=== PATIENT | female | born 1935 | race Caucasian/White ===

== ENCOUNTER 2018-04-12 05:52 | Emergency (ER) | payer OTHER, MEDICARE ==
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
[2018-04-12 06:32] VITALS: BP 172/77
== END 2018-04-12 07:56 ==
LOC: ERH 05:52
DX: Z04.3 Encounter for examination and observation following other accident (principal); W19.XXXA Unspecified fall, initial encounter; Y92.129 Unspecified place in nursing home as the place of occurrence of the external cause; Y93.9 Activity, unspecified

== ENCOUNTER 2018-06-08 12:21 | Inpatient (IN) | payer OTHER ==
[~2018-06-08] VITALS: Ht 157.5 cm; Wt 53.1 kg
[2018-06-08 12:54] LABS: ABSOLUTE BASOPHIL COUNT 0 /CUMM (0.0-0.2); ABSOLUTE EOSINOPHIL COUNT 0 /CUMM (0.0-0.7); ABSOLUTE GRANULOCYTE CT 13.5 /CUMM (1.4-6.5); ABSOLUTE LYMPH COUNT 0.9 /CUMM (1.2-3.4); ABSOLUTE MONOCYTE COUNT 1.1 /CUMM (0.10-0.60); BASOPHIL % 0.1 % (0.0-2.0); EOSINOPHIL % 0 % (0-5); GRANULOCYTE % 87.3 % (42.2-75.2); HEMATOCRIT 34.7 % (37-47); MEAN CORPUSCULAR HGB 31.5 PG (27.0-31.0); MEAN CORPUSCULAR HGB CONC 33.8 G/DL (33.0-37.0); MEAN CORPUSCULAR VOLUME 93.1 FL (81.0-99.0); MEAN PLATELET VOLUME 9.3 FL (7.4-10.4); PLATELET COUNT 218 /CUMM (130-400); RBC DISTRIBUTION WIDTH 13.2 % (11.5-14.5); RED BLOOD CELL CT 3.73 /CUMM (4.20-5.40)
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
[2018-06-08 13:04] LABS: WHITE BLOOD CELL COUNT 15.5 /CUMM (4.8-10.8)
[2018-06-08] MEDS ORDERED: TRAVATAN Z5 ML OPH (13:29)
[2018-06-08] MEDS ORDERED: LUMIGAN2.5 ML OPH (13:30)
[2018-06-08] MEDS ORDERED: LISINOPRIL10 M1 PO (13:30)
[2018-06-08] MEDS ORDERED: SERTRALINE HCL25 MG PO (13:31)
[2018-06-08] MEDS ORDERED: TRAZODONE HCL50 M1 PO ×2 (13:32→13:33)
[2018-06-08] MEDS ORDERED: BETIMOL5 ML OPH (13:32)
--- NOTE | 2018-06-08 14:05 | CT SCAN REPORT ---
EXAMINATION: CT HEAD WITHOUT CONTRAST CLINICAL INFORMATION: Altered mental status status-post fall. COMPARISON: CT head dated 06/04/2018. TECHNIQUE: Contiguous axial imaging was performed from the skull base to vertex without intravenous administration of contrast. DLP: 603.30 mGy-cm FINDINGS: There is no interim acute intracranial hemorrhage or territorial infarction. No abnormal mass effect or midline shift is seen. Elliott to white matter differentiation is well preserved. No extra-axial fluid collections are identified. The ventricles are normal in size. There is age-appropriate generalized sulcal widening. There is marked patchy low attenuation in the periventricular white matter spaces. Previously described right thalamic lacunar infarction is faintly visualized. There are atherosclerotic calcifications of the skull base vasculature. The osseous structures and soft tissues are normal. The mastoid air cells and visualized portions of the paranasal sinuses are well aerated. IMPRESSION: 1. No acute intracranial pathology. There is no significant interim change. 2. There is marked patchy low attenuation change in the paravertebral white matter spaces, commonly associated with chronic microangiopathy. 3. A previously described right thalamic lacunar infarction is faintly visualized. Please see recommendation on the report for the CT brain dated 06/04/2018.
--- NOTE | 2018-06-08 14:13 | RADIOLOGY REPORT ---
EXAMINATION: XR PORTABLE CHEST CLINICAL INFORMATION: Rule out pneumonia/CHF. Fever with altered mental status. COMPARISON: Chest x-ray dated 06/04/2018. TECHNIQUE: Portable frontal view of the chest was obtained. FINDINGS: The cardiomediastinal silhouette is unchanged with marked tortuosity and ectasia of the aorta are seen. Heart size is borderline enlarged. Lungs bilaterally are symmetrically expanded and demonstrate slight coarsening of the bronchovascular lung markings and slight thickening of the central airways, suggesting obstructive lung disease. No focal consolidation, effusion or pneumothorax seen. Convex left thoracolumbar scoliosis and diffuse osteopenia again seen. IMPRESSION: 1. Tortuous and ectatic aorta and borderline enlarged cardiac silhouette. 2. Lung findings suggestive of obstructive lung disease. No focal superimposed acute process.
--- NOTE | 2018-06-08 14:48 | History & Physical ---
BryantKirsten 06/08/18 1445: General Information and HPI MD Statement: I have seen and personally examined ROLANDA MADRID and documented this H&P. The patient is a 83 year old F who presented with a patient stated chief complaint of [AMS, UTI]. Source of Information: old records, EMS Exam Limitations: confusion, dementia History of Present Illness: Ms. Chen is a 83yo F w/ PMH of AZD, HTN, Galucoma, OA, presented to ER BIBA from assist living a/P fall, and per EMS, patient was found laying on the floor in an apartment, was unwitnessed fall. Patient had baseline confusion but denied any injuries or no obvious signs of injury to her neck or back, patient remained alert and awake but only oriented to self, not to place/time/setting/ president. Patient was recently seen in ER on 06/04 with AMS however was sent home monitoring without admission. During our clinical interaction, patient appeared to be alert awake and conversational, however do not know where she is currently, or what year this and answered only 1900, and did not know who is the [place] president currently. Patient complaining of chills and cold and require more blanket, however denied any other discomfort and followed all my commands to physical examination. Patient also denied that she fell today and stated that she lives by herself, and mumbled that somebody was taking care of her. -Baselines: ambulate with walker Allergies/Medications Allergies: Coded Allergies: No Known Allergies (10/12/17) Home Med list Bimatoprost (Lumigan) 0.01 % DROPS 1 GTT OPH QPM BOTH EYES (Reported) Lisinopril 10 MG TABLET 1 TAB PO DAILY BP (Reported) Sertraline HCl 25 MG TABLET 1 TAB PO 0800 MENTAL HEALTH (Reported) Timolol (Betimol) 0.25 % DROPS 1 DROP OPH BID BOTH EYES (Reported) Travoprost (Travatan Z) 0.004 % DROPS 1 GTT OPH DAILY EYES (Reported) Trazodone HCl 50 MG TABLET 0.5 TAB PO PRN UNKNOWN (Reported) Past History Travel History Traveled to [place] past 21 day No Medical History Neurological: Alzheimer's disease EENT: glaucoma Cardiovascular: hypertension Respiratory: NONE Gastrointestinal: NONE Hepatic: NONE Renal: NONE Musculoskeletal: osteoarthritis, CARPAL TUNNEL Psychiatric: NONE Endocrine: NONE Blood Disorders: NONE Cancer(s): NONE 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 Exam & Diagnostic Data Last 24 Hrs of Vital Signs/I&O Vital Signs Date Time Temp Pulse Resp B/P B/P Pulse O2 O2 Flow FiO2 Mean Ox Delivery Rate 06/08 1234 98.9 85 16 164/80 100 Room Air Intake & Output 06/08 1600 06/08 0800 06/08 0000 Intake Total Output Total Balance Patient 49.895 kg Weight Weight Estimated Measurement Method Physical Exam General Appearance Alert, Cooperative, chills. oriented to self only Skin No Rashes, No Breakdown, No Significant Lesion Skin Temp/Moisture Exam: Warm/Dry Sepsis Skin Exam (color): Normal for Ethnicity HEENT Atraumatic, PERRLA, EOMI Neck Supple, No JVD Cardiovascular mild tachycardia Lungs Clear to Auscultation, Normal Air Movement Abdomen Normal Bowel Sounds, Soft, No Tenderness Neurological Strength at 5/5 X4 Ext, Sensation Intact Extremities No Edema, Normal Pulses, No Tenderness/Swelling Last 24 Hrs of Labs/Jonathan: Laboratory Tests 06/08/18 1430: Methadone Screen Pending, Barbiturate Screen Pending, Ur Phencyclidine Scrn Pending, Amphetamines Screen Pending, U Benzodiazepines Scrn Pending, Urine Cocaine Screen Pending, Urine Cannabis Screen Pending, Urine Color YEL, Urine Clarity CLDY H, Urine pH 6.5, Ur Specific [place] 1.020, Urine Protein 30 H, Urine Ketones NEG, Urine Nitrite POS H, Urine Bilirubin NEG, Urine Urobilinogen 1.0, Ur Leukocyte Esterase LARGE H, Ur Microscopic SEDIMENT EXAMINED, Urine RBC RARE, Urine WBC > 75 H, Ur Epithelial Cells FEW, Urine Bacteria MANY H, Urine Hemoglobin SMALL H, Urine Glucose NEG 06/08/18 1241: Anion Gap 9, Estimated GFR > 60, BUN/Creatinine Ratio 30.0 H, Glucose 130 H, Calcium 9.7, Total Bilirubin 0.8, AST 20, ALT 25, Alkaline Phosphatase 80, Troponin I 0.02, Total Protein 6.3, Albumin 3.8, Globulin 2.5, Albumin/Globulin Ratio 1.5, CBC w Diff MAN DIFF ORDERED, RBC 3.73 L, MCV 93.1, MCH 31.5 H, MCHC 33.8, RDW 13.2, MPV 9.3, Gran % 87.3 H, Lymphocytes % 5.7 L, Monocytes % 6.9, Eosinophils % 0, Basophils % 0.1, Absolute Granulocytes 13.5 H, Absolute Lymphocytes 0.9 L, Absolute Monocytes 1.1 H, Absolute Eosinophils 0, Absolute Basophils 0, Platelet Estimate VERIFIED BY SMEAR, Basophilic Stippling SLIGHT Microbiology 06/08 1430 URINE ROUT: Urine Culture - RECD Assessment/Plan Assessment: On admission, Vitals: stable afebrile however spiked Tmax 100.4 during GM admission, BP 164/80 , RA satting 100% -CBC: Leukocytosis 15.5, H/H 11.8/34.7 -BMP: unremarkbale -PT/INR: none -UA/Microbiology: Positive for LE/NItrites/WBC/Bacteria. -CXR: 1. Tortuous and ectatic aorta and borderline enlarged cardiac silhouette. 2. Lung findings suggestive of obstructive lung disease. No focal superimposed acute process -Head CT: 1. No acute intracranial pathology. There is no significant interim change. 2. There is marked patchy low attenuation change in the paravertebral white matter spaces, commonly associated with chronic microangiopathy. 3. A previously described right thalamic lacunar infarction is faintly visualized. Please see recommendation on the report for the CT brain dated 06/04/2018. -EKG: NSR w/o significant ST-T abnormalities. -Last Echo: none in [facility] -Interventions in ER: IVF x 1, ceftriaxone x 1 Problem list/Assessment/Hospital Course: #UTI w/ Leukocytosis #Dehydration #AMS w/ possible Toxic encephalopathy 2/2 UTI pending rule out. #Unwitnessed Fall #PMH of AZD, HTN, Galucoma, OA - Admit to General Medicine - Vitals per protocol, monitor I&O per protocol. - PT/OT as needed - Continuous IVF x 1 bag @75cc. Would encourage food intake however may be limited due to patient's confusion - Obtain psych consult. - Start ABx Ceftriaxone 1000mg IV q24. No previous microbiology on file, thus would cover common UTI bugs - Pending blood culture/Urine culture/tox - Obtain history from caregiver if any - Continue home meds upon confirmation, will hold trazdone due to AMS - Pain per pathway. DVT prophylaxis Pharm PPX + ALPS Regular Diet IV Access: Peripheral IV Full Code As Ranked By This Provider Problem List: 1. UTI (urinary tract infection) Qualifiers Urinary tract infection type: site unspecified Hematuria presence: without hematuria Qualified Code: N39.0 - Urinary tract infection, site not specified Core Measures/Misc (08/12) Acute Coronary Syndrome ACS Diagnosis: No Congestive Heart Failure Congestive Heart Failure Diagnosis No Cerebrovascular Accident CVA/TIA Diagnosis: No VTE (View Protocol) VTE Risk Factors Age>40 No Mechanical VTE Prophylaxis d/t N/A MechProphylax Ordered No VTE Pharm Prophylaxis d/t NA PharmProphylax ordered Sepsis (View protocol) Sepsis Present: No If YES complete Sepsis Event Note If YES complete Sepsis Event Note Srikanth Bhandari MD 06/08/18 4309: Core Measures/Misc (08/12) Sepsis (View protocol) If YES complete Sepsis Event Note If YES complete Sepsis Event Note Attending MD Review Statement Attending Statement Attending MD Statement: examined this patient, discuss w/resident/PA/INVESTIGATIVE ANALYST, agreed w/resident/PA/INVESTIGATIVE ANALYST, reviewed EMR data (avail), reviewed images, amended to note Attending Assessment/Plan: The patient is an 83 yo female with h/o dementia, HTN, OA, who was found on the floor of her apartment (assisted living) after an unwitnessed fall. She was awake, however altered mental status. She had also been seen in the ED here on for altered mental status, however no etiology found and she was sent home. She did c/o feeling chilled and cold. Denied any pain. Physical Exam: VS: T 98.9, P 85, R 16, BP 164/80, PO 100% RA HEENT: eyes- PERRLA travis- dry mucosa Neck: no JVD/bruits Chest: clear Cor: Reg rhythm, sl tachy, nl S1, S2 w/o murm Abd: BS+, soft, NT, - masses, - CVAT Ext: no edema, pulses 1+ Neuro: alert, disoriented to time/place, knows her name, non-focal exam (gait not tested) Labs/Tests -as above Impression/Plan: #UTI- With leukocytosis, left shift, low grade fever. Does not meet sepsis criteria. Plan: Ortega-culture. Begin IV ceftriaxone. Follow symptoms. Will need PT evaluation when improving. IV hydration. #Altered Mental Status- c/w Toxic Metabolic Encephalopathy- due to UTI. Plan: Follow mental status with treatment. #H/O Depression/Dementia- on Sertraline and Trazodone. Plan: Will hold Trazodone at present as mental status is altered. #HTN- on Lisinopril. Plan: Will continue Lisinopril.
[2018-06-08 16:30] VITALS: BP 138/60
[2018-06-08 22:09] VITALS: BP 144/80
--- NOTE | 2018-06-08 23:48 | Admission Certification ---
Admission Certification Certification Statement - As attending physician, I certify that at the time of - admission, based on clinical presentation, severity of - symptoms, need for further diagnostic testing and - therapeutic interventions, and risk of adverse outcomes - without in-hospital treatment, in my clinical assessment, - this patient requires an acute hospital stay for a minimum - of two nights or longer. I have also considered psychsocial - factors such as support system, advanced age, financial - issues, cognitive issues, and failed out-patient treatments, - past re-admission history, safety of patient, and lack of - compliance as applicable. Specific rationale supporting this admission is: The patient presents with UTI and altered mental status c/w toxic metabolic encephalopathy. Needs admission for cultures, IV antibiotics (Ceftriaxone), PT, IV hydration.
[2018-06-09] VITALS (7 sets, daily range): BP systolic 110–200; BP diastolic 50–100
[2018-06-09 07:58] LABS: ABSOLUTE BASOPHIL COUNT 0 /CUMM (0.0-0.2); ABSOLUTE EOSINOPHIL COUNT 0.1 /CUMM (0.0-0.7); ABSOLUTE GRANULOCYTE CT 10.1 /CUMM (1.4-6.5); ABSOLUTE LYMPH COUNT 1.3 /CUMM (1.2-3.4); ABSOLUTE MONOCYTE COUNT 0.8 /CUMM (0.10-0.60); BASOPHIL % 0 % (0.0-2.0); EOSINOPHIL % 0.4 % (0-5); GRANULOCYTE % 82.2 % (42.2-75.2); HEMATOCRIT 31.5 % (37-47); MEAN CORPUSCULAR HGB 32.2 PG (27.0-31.0); MEAN CORPUSCULAR HGB CONC 34.2 G/DL (33.0-37.0); MEAN CORPUSCULAR VOLUME 94.2 FL (81.0-99.0); MEAN PLATELET VOLUME 9.7 FL (7.4-10.4); PLATELET COUNT 175 /CUMM (130-400); RBC DISTRIBUTION WIDTH 13.1 % (11.5-14.5); RED BLOOD CELL CT 3.35 /CUMM (4.20-5.40); WHITE BLOOD CELL COUNT 12.2 /CUMM (4.8-10.8)
--- NOTE | 2018-06-09 08:28 | PN- Housestaff ---
See Addendum Subjective Follow-up For: UTI Subjective: Overnight, patient blood pressure was in the 200s, was a symptomatically patient 's lisinopril was given earlier and she was given IV Tylenol for pain. Patient' s blood pressure normalized. Had no hypertensive events today. Patient seen and examined at bedside today. Patient more alert and oriented, 2, not oriented to time. When asked about fall, patient adamantly denied she felt she stated "I slid out of the bed that was not falling". Patient still continues to converse in yi every once in a while. Patient states that she feels an urge to urinate, however she does not urinate. Patient denies burning with urination. Patient also denies frequency. Patient states the symptoms are resolving somewhat. Patient denies fever/chills/night sweats/chest pain/ abdominal pain/lower extremity edema. Review of Systems Constitutional: Reports: see HPI. Objective Last 24 Hrs of Vital Signs/I&O Vital Signs Date Time Temp Pulse Resp B/P B/P Pulse O2 O2 Flow FiO2 Mean Ox Delivery Rate 06/09 1509 98.6 74 18 178/98 95 Room Air 06/09 0738 73 162/86 97 Room Air 06/09 0622 97.7 68 16 110/50 94 Room Air 06/09 0444 97 200/100 06/09 0420 98.2 97 18 200/100 95 Room Air 06/08 2209 98.7 81 17 144/80 96 Room Air 06/08 1931 85 06/08 1630 99.4 104 18 138/60 97 Room Air Intake & Output 06/09 1600 06/09 0800 06/09 0000 Intake Total 360 690 Output Total Balance 360 690 Intake, IV 120 450 Intake, Oral 240 240 Number 0 0 Bowel Movements Patient 117 lb Weight Weight Bed scale Measurement Method Physical Exam General Appearance: Alert, Cooperative, No Acute Distress Cardiovascular: Regular Rate, Normal S1, Normal S2 Lungs: Clear to Auscultation, Normal Air Movement Abdomen: Soft, No Tenderness Neurological: Sensation Intact Extremities: No Edema Current Medications: Current Medications Sig/Ratna Start time Last Medication Dose Route Stop Time Status Admin Acetaminophen 1,000 MG .STK-MED ONE 06/09 0440 DC IV 06/09 0441 Acetaminophen 650 MG Q6P PRN 06/08 1530 AC PO Acetaminophen 1,000 MG Q6P PRN 06/08 1530 AC 06/09 IV 0444 Ceftriaxone Sodium 1,000 MG 1500 06/09 1500 AC IV Heparin Sodium 5,000 UNIT Q8 06/08 2200 AC 06/09 (Porcine) SC 1346 Latanoprost 1 GTT AT BEDTIME 06/08 2100 AC 06/08 OPH 2158 Lisinopril 10 MG DAILY 06/09 0900 AC 06/09 PO 0444 Risperidone 0.25 MG QPM 06/09 2100 UNVr PO Sertraline HCl 25 MG 0800 06/09 0800 AC 06/09 PO 0756 Sodium Chloride 1,000 ML ONCE ONE 06/08 1445 DC 06/08 IV 06/08 2124 1509 Timolol Maleate 1 GTT BID 06/08 2100 AC 06/09 OPH 0756 Last 24 Hrs of Lab/Jonathan Results Last 24 Hrs of Labs/Mics: Laboratory Tests 06/09/18 0705: Anion Gap 9, Estimated GFR > 60, BUN/Creatinine Ratio 21.7, CBC w Diff NO MAN DIFF REQ, RBC 3.35 L, MCV 94.2, MCH 32.2 H, MCHC 34.2, RDW 13.1, MPV 9.7, Gran % 82.2 H, Lymphocytes % 10.6 L, Monocytes % 6.8, Eosinophils % 0.4, Basophils % 0, Absolute Granulocytes 10.1 H, Absolute Lymphocytes 1.3, Absolute Monocytes 0.8 H, Absolute Eosinophils 0.1, Absolute Basophils 0 06/08/18 1614: Lactic Acid 1.0 Microbiology 06/08 161 BLOOD: Blood Culture - RES Assessment/Plan Assessment: Ms. Chen is a 83yo F w/ PMH of AZD, HTN, Galucoma, OA, presented to ER BIBA from assist living a/P fall, and per EMS, patient was found laying on the floor in an apartment, was unwitnessed fall #UTI #Confusion tomorrow not good. Could be contributory to confusion. DVT prophylaxis IV access Tolerating regular diet Disposition Clarify with caregiver whether she is full code or DNR/DNI Problem List: 1. UTI (urinary tract infection) 2. Confusion and disorientation Pain Ratin Pain Location: suprapubic Pain Goal: Pain 4 or less Pain Plan: pain pathway Tomorrow's Labs & Rationales: cbc follow white count
--- NOTE | 2018-06-09 12:06 | Cons- Psychiatry ---
Psychiatric Consult Date of Consult: 06/09/18 Reason for Consult: "altered mental status" History of Present Illness: Pt BIBA s/p fall found to have UTI and some confusion. Per hx, also hx of cognitive impairment and CVA. Pt reports that here in the hospital, which she was oriented to, because of "problems when I pee peed." She reports this has improved. She was oriented to self, location and situation. Not oriented to month (March) or year (2016). She denies depression or anxiety. Denies SI or HI, "I'm trying to make it to 100, but its going to be hard, but I'm going to try!" Allergies: Coded Allergies: No Known Allergies (10/12/17) Current Medications: Current Medications Sig/Ratna Start time Last Medication Dose Route Stop Time Status Admin Acetaminophen 650 MG Q6P PRN 06/08 1530 AC PO Acetaminophen 1,000 MG Q6P PRN 06/08 1530 AC 06/09 IV 0444 Ceftriaxone Sodium 1,000 MG 1500 06/09 1500 AC IV Ceftriaxone Sodium 0 .STK-MED ONE 06/08 1455 DC .ROUTE Ceftriaxone Sodium 1,000 MG ONCE ONE 06/08 1445 DC 06/08 IV 06/08 1446 1509 Heparin Sodium 5,000 UNIT Q8 06/08 2200 AC 06/09 (Porcine) SC 0640 Latanoprost 1 GTT AT BEDTIME 06/08 2100 AC 06/08 OPH 2158 Lisinopril 10 MG DAILY 06/09 0900 AC 06/09 PO 0444 Sertraline HCl 25 MG 0800 06/09 0800 AC 06/09 PO 0756 Sodium Chloride 1,000 ML ONCE ONE 06/08 1445 DC 06/08 IV 06/08 2124 1509 Timolol Maleate 1 GTT BID 06/08 2100 AC 06/09 OPH 0756 Past History Past Medical History Neurological: Alzheimer's disease EENT: glaucoma Cardiovascular: hypertension Respiratory: NONE Gastrointestinal: NONE Hepatic: NONE Renal: NONE Musculoskeletal: osteoarthritis, CARPAL TUNNEL Psychiatric: NONE Endocrine: NONE Blood Disorders: NONE Cancer(s): NONE MICROARRAY SPECIALIST/Reproductive: NONE Past Surgical History Surgical History: unobtainable, 1 Psychiatric Treatment History Psych Treatment Psychiatric Treatment No Diagnosis: ?MDD Risk Factors: age (under 24/over 65), chronic/serious med cond. Substance Use/Abuse History Drug Use/Abuse Substances Used/Abused No Substance Abuse Treatment Substance Abuse Treatment Past Substance Abuse [place] No Assessment/Plan Mental Status Orientation: Current situation, Person, Place Affect: WNL Speech: Soft Neuro-vegetative: Appetite Decreased, Concentration Poor Mental Status Exam: MSE Appearance: older as stated age Speech : nl rate, rhythm, volume and prosody Behavior: cooperative Motor: slight psychomotor agtiation Mood : "much better now" Affect : euthymic, non-labile, appropriate, full range Thought process: linear and goal directed Thought content : no delusions or paranoia Perceptions: denied AVHs, denied SI or HI Insight: poor Judgment: poor Lab Results: Laboratory Tests 06/09 06/08 0705 1614 Chemistry Sodium (137 - 145 mmol/L) 139 Potassium (3.5 - 5.1 mmol/L) 3.7 Chloride (98 - 107 mmol/L) 103 Carbon Dioxide (22 - 30 mmol/L) 26 Anion Gap (5 - 16) 9 BUN (7 - 17 mg/dL) 13 Creatinine (0.5 - 1.0 mg/dL) 0.6 Estimated GFR (>60 ml/min) > 60 BUN/Creatinine Ratio (7 - 25 %) 21.7 Lactic Acid (0.7 - 2.1 mmol/L) 1.0 Hematology CBC w Diff NO MAN DIFF REQ WBC (4.8 - 10.8 /CUMM) 12.2 H RBC (4.20 - 5.40 /CUMM) 3.35 L Hgb (12.0 - 16.0 G/DL) 10.8 L Hct (37 - 47 %) 31.5 L MCV (81.0 - 99.0 FL) 94.2 MCH (27.0 - 31.0 PG) 32.2 H MCHC (33.0 - 37.0 G/DL) 34.2 RDW (11.5 - 14.5 %) 13.1 Plt Count (130 - 400 /CUMM) 175 MPV (7.4 - 10.4 FL) 9.7 Gran % (42.2 - 75.2 %) 82.2 H Lymphocytes % (20.5 - 51.1 %) 10.6 L Monocytes % (1.7 - 9.3 %) 6.8 Eosinophils % (0 - 5 %) 0.4 Basophils % (0.0 - 2.0 %) 0 Absolute Granulocytes (1.4 - 6.5 /CUMM) 10.1 H Absolute Lymphocytes (1.2 - 3.4 /CUMM) 1.3 Absolute Monocytes (0.10 - 0.60 /CUMM) 0.8 H Absolute Eosinophils (0.0 - 0.7 /CUMM) 0.1 Absolute Basophils (0.0 - 0.2 /CUMM) 0 06/08 1430 Toxicology Urine Opiates Screen (>2000 NG/ML) < 100 Methadone Screen (>300 NG/ML) < 40 Barbiturate Screen (>200 NG/ML) < 60 Ur Phencyclidine Scrn (>25 NG/ML) < 6.00 Amphetamines Screen (>1000 NG/ML) < 100 U Benzodiazepines Scrn (>200 NG/ML) 102 Urine Cocaine Screen (>300 NG/ML) < 50 Urine Cannabis Screen (>50 NG/ML) < 5.00 Urines Urine Color (YEL,AMB,STR) YEL Urine Clarity (CLEAR) CLDY H Urine pH (5.0 - 8.0) 6.5 Ur Specific [place] (1.001 - 1.035) 1.020 Urine Protein (NEG,<30 MG/DL) 30 H Urine Ketones (NEG) NEG Urine Nitrite (NEG) POS H Urine Bilirubin (NEG) NEG Urine Urobilinogen (0.1 - 1.0 EU/dl) 1.0 Ur Leukocyte Esterase (NEG) LARGE H Ur Microscopic SEDIMENT EXAMINED Urine RBC (0 - 5 /HPF) RARE Urine WBC (0 - 2 /HPF) > 75 H Ur Epithelial Cells (NONE,FEW) FEW Urine Bacteria (NEG/NONE) MANY H Urine Hemoglobin (NEG) SMALL H Urine Glucose (N MG/DL) NEG 06/08 1241 Chemistry Sodium (137 - 145 mmol/L) 139 Potassium (3.5 - 5.1 mmol/L) 4.1 Chloride (98 - 107 mmol/L) 100 Carbon Dioxide (22 - 30 mmol/L) 30 Anion Gap (5 - 16) 9 BUN (7 - 17 mg/dL) 18 H Creatinine (0.5 - 1.0 mg/dL) 0.6 Estimated GFR (>60 ml/min) > 60 BUN/Creatinine Ratio (7 - 25 %) 30.0 H Glucose (65 - 99 mg/dL) 130 H Calcium (8.4 - 10.2 mg/dL) 9.7 Total Bilirubin (0.2 - 1.3 mg/dL) 0.8 AST (14 - 36 U/L) 20 ALT (9 - 52 U/L) 25 Alkaline Phosphatase (<127 U/L) 80 Troponin I (< 0.11 ng/ml) 0.02 Total Protein (6.3 - 8.2 g/dL) 6.3 Albumin (3.5 - 5.0 g/dL) 3.8 Globulin (1.9 - 4.2 gm/dL) 2.5 Albumin/Globulin Ratio (1.1 - 2.2 %) 1.5 Hematology CBC w Diff MAN DIFF ORDERED WBC (4.8 - 10.8 /CUMM) 15.5 H RBC (4.20 - 5.40 /CUMM) 3.73 L Hgb (12.0 - 16.0 G/DL) 11.8 L Hct (37 - 47 %) 34.7 L MCV (81.0 - 99.0 FL) 93.1 MCH (27.0 - 31.0 PG) 31.5 H MCHC (33.0 - 37.0 G/DL) 33.8 RDW (11.5 - 14.5 %) 13.2 Plt Count (130 - 400 /CUMM) 218 MPV (7.4 - 10.4 FL) 9.3 Gran % (42.2 - 75.2 %) 87.3 H Lymphocytes % (20.5 - 51.1 %) 5.7 L Monocytes % (1.7 - 9.3 %) 6.9 Eosinophils % (0 - 5 %) 0 Basophils % (0.0 - 2.0 %) 0.1 Absolute Granulocytes (1.4 - 6.5 /CUMM) 13.5 H Absolute Lymphocytes (1.2 - 3.4 /CUMM) 0.9 L Absolute Monocytes (0.10 - 0.60 /CUMM) 1.1 H Absolute Eosinophils (0.0 - 0.7 /CUMM) 0 Absolute Basophils (0.0 - 0.2 /CUMM) 0 Platelet Estimate (ADEQUATE) VERIFIED BY SMEAR Basophilic Stippling SLIGHT Diffential Diagnosis: Delirium due to underlying medical cause Major Neurocognitive Disorder Major Depressive disorder, in full sustained remission Impression: Pt with high risk for delirium given know infection, dehydration, age, hx of stroke, and likely underlying neurocognitive disorder presenting with AMS. Provisional Treatment Plan: - Pt is NOT danger to self or others - Can continue sertraline at 25mg as low dose and no se at this time - Treatment for delirium is two-fold, time, most importantly, and it will take time for her to clear fully, and medication, can start risperidone 0.25mg nightly - Please monitor QTc - Will need PT,OT, and case management to determine if current placement is appropriate
[2018-06-10 06:33] VITALS: BP 123/71
--- NOTE | 2018-06-10 07:09 | PN- Housestaff ---
See Addendum Subjective Follow-up For: UTI, confusion Subjective: Patient seen and examined at bedside. Patient A&O 2, still does not know what year it is. Patient states that she is not in any pain currently. Patient continues to occasionally speaking Turkmen, but denies any complaints. Denies fever/chills/night sweats/chest pain/abdominal pain/urinary symptoms/lower extremity edema. No acute events overnight. Review of Systems Constitutional: Reports: see HPI. Objective Last 24 Hrs of Vital Signs/I&O Vital Signs Date Time Temp Pulse Resp B/P B/P Pulse O2 O2 Flow FiO2 Mean Ox Delivery Rate 06/10 0900 72 132/70 93 Room Air 06/10 0633 99.4 78 20 123/71 96 Room Air 06/09 2117 99.9 78 18 110/60 97 Room Air 06/09 1756 97 156/82 95 Room Air 06/09 1655 91 176/90 06/09 1636 91 18 176/90 96 Room Air 06/09 1509 98.6 74 18 178/98 95 Room Air Intake & Output 06/10 1600 06/10 0800 06/10 0000 Intake Total 120 Output Total Balance 120 Intake, Oral 120 Physical Exam General Appearance: Alert, Cooperative, No Acute Distress Skin: No Rashes Skin Temp/Moisture Exam: Warm/Dry Cardiovascular: Regular Rate, Normal S1, Normal S2 Lungs: Clear to Auscultation, Normal Air Movement Abdomen: Soft, No Tenderness Neurological: Sensation Intact Extremities: No Edema Current Medications: Current Medications Sig/Ratna Start time Last Medication Dose Route Stop Time Status Admin Acetaminophen 650 MG Q6P PRN 06/08 1530 AC PO Acetaminophen 1,000 MG Q6P PRN 06/08 1530 AC 06/09 IV 0444 Amlodipine Besylate 5 MG DAILY 06/09 1641 AC 06/10 PO 0842 Ceftriaxone Sodium 1,000 MG 1500 06/09 1500 AC 06/09 IV 1612 Heparin Sodium 5,000 UNIT Q8 06/08 2200 AC 06/10 (Porcine) SC 0520 Latanoprost 1 GTT AT BEDTIME 06/08 2100 AC 06/09 OPH 2113 Lisinopril 10 MG DAILY 06/09 0900 AC 06/10 PO 0842 Risperidone 0.25 MG QPM 06/10 2100 AC PO Risperidone 0.25 MG QPM PRN 06/10 2100 DC PO Risperidone 0.25 MG QPM PRN 06/10 1030 AC PO 06/10 2059 Risperidone 0.25 MG QPM PRN 06/09 2111 DC PO 06/10 2059 Risperidone 0.25 MG QPM 06/09 2100 DC 06/10 PO 1043 Sertraline HCl 25 MG 0800 06/09 0800 AC 06/10 PO 0842 Timolol Maleate 1 GTT BID 06/08 2100 AC 06/10 OPH 0843 Last 24 Hrs of Lab/Jonathan Results Last 24 Hrs of Labs/Mics: Laboratory Tests 06/10/18 0732: CBC w Diff NO MAN DIFF REQ, RBC 3.69 L, MCV 95.0, MCH 31.4 H, MCHC 33.1, RDW 12.8, MPV 9.4, Gran % 72.1, Lymphocytes % 16.1 L, Monocytes % 11.2 H, Eosinophils % 0.3, Basophils % 0.3, Absolute Granulocytes 6.3, Absolute Lymphocytes 1.4, Absolute Monocytes 1.0 H, Absolute Eosinophils 0, Absolute Basophils 0 Assessment/Plan Assessment: Ms. Chen is a 83yo F w/ PMH of AZD, HTN, Galucoma, OA, presented to ER BIBA from [facility] s/P fall, and per EMS, patient was found laying on the floor in an apartment, was unwitnessed fall #UTIresolving to follow. Blood cultures no growth to date #Confusion tomorrow not good. Could be contributory to confusion. DVT prophylaxis IV access Tolerating regular diet Dispositionwill get PT evaluation Clarify with caregiver whether she is full code or DNR/DNI Problem List: 1. Confusion and disorientation 2. UTI (urinary tract infection) Pain Ratin Pain Location: na Pain Goal: Pain 4 or less Pain Plan: pathway Tomorrow's Labs & Rationales: na
[2018-06-10 08:31] LABS: ABSOLUTE BASOPHIL COUNT 0 /CUMM (0.0-0.2); ABSOLUTE EOSINOPHIL COUNT 0 /CUMM (0.0-0.7); ABSOLUTE GRANULOCYTE CT 6.3 /CUMM (1.4-6.5); ABSOLUTE LYMPH COUNT 1.4 /CUMM (1.2-3.4); BASOPHIL % 0.3 % (0.0-2.0); EOSINOPHIL % 0.3 % (0-5); GRANULOCYTE % 72.1 % (42.2-75.2); MEAN CORPUSCULAR HGB 31.4 PG (27.0-31.0); MEAN CORPUSCULAR HGB CONC 33.1 G/DL (33.0-37.0); MEAN PLATELET VOLUME 9.4 FL (7.4-10.4); PLATELET COUNT 187 /CUMM (130-400); RBC DISTRIBUTION WIDTH 12.8 % (11.5-14.5); RED BLOOD CELL CT 3.69 /CUMM (4.20-5.40); WHITE BLOOD CELL COUNT 8.7 /CUMM (4.8-10.8)
[2018-06-10 09:00] VITALS: BP 132/70
[2018-06-10 14:56] VITALS: BP 130/70
--- NOTE | 2018-06-10 15:13 | Event Note ---
Event Note Event Note: Pts granddaughter stopped by, would like to be contacted if any changes in patients condition. Contact number is [phone]
--- NOTE | 2018-06-10 16:48 | CT SCAN REPORT ---
EXAMINATION: CT HEAD WITHOUT CONTRAST CLINICAL INFORMATION: Altered mental status COMPARISON: CT head most recent prior dated 06/08/2018 TECHNIQUE: Contiguous axial imaging was performed from the skull base to vertex without intravenous administration of contrast. DLP: 1057.14 mGy-cm FINDINGS: Motion degradation. No definite evidence of acute intra-axial or extra-axial hemorrhage. Moderate to severe small vessel ischemic disease. Prominence of the ventricles and sulci compatible with age-related involutional changes. The mastoid air cells and visualized portions of the paranasal sinuses are well aerated. IMPRESSION: 1. Examination degraded by patient motion. 2. Visualized portions do not demonstrate acute intracranial pathology. 3. Severe small vessel ischemic disease.
[2018-06-10 22:24] VITALS: BP 114/70
[2018-06-11 06:49] VITALS: BP 155/96
--- NOTE | 2018-06-11 08:23 | PN- Housestaff ---
Michael Watts 06/11/18 0823: Subjective Follow-up For: UTI Subjective: Pt seen and examined at bedside. Appears much more lucent, responds quicker to questions. laughs and jokes appropriately. Denies complaints at this time. States "No more pills!". Denied fever/chills/night sweats/chest pain/shortness of breath/abdominal pain/urinary symptoms/lower extremity edema Review of Systems Constitutional: Reports: see HPI. Objective Last 24 Hrs of Vital Signs/I&O Vital Signs Date Time Temp Pulse Resp B/P B/P Pulse O2 O2 Flow FiO2 Mean Ox Delivery Rate 06/11 0814 73 155/96 06/11 0813 73 155/96 06/11 0649 98.6 73 18 155/96 97 06/10 2224 98.8 68 17 114/70 94 Room Air 06/10 1600 Room Air 06/10 1456 98.4 64 20 130/70 95 Room Air 06/10 1423 Nasal 2.0L Cannula 06/10 1153 Nasal 2.0L Cannula Intake & Output 06/11 1600 06/11 0800 06/11 0000 Intake Total 240 240 Output Total Balance 240 240 Intake, Oral 240 240 Number 1 Bowel Movements Physical Exam General Appearance: Alert, Cooperative, No Acute Distress Skin: No Rashes Skin Temp/Moisture Exam: Warm/Dry Cardiovascular: Regular Rate, Normal S1, Normal S2 Lungs: Clear to Auscultation, Normal Air Movement Abdomen: Soft, No Tenderness Neurological: Sensation Intact Extremities: No Edema Current Medications: Current Medications Sig/Ratna Start time Last Medication Dose Route Stop Time Status Admin Acetaminophen 650 MG Q6P PRN 06/08 1530 AC PO Acetaminophen 1,000 MG Q6P PRN 06/08 1530 AC 06/09 IV 0444 Amlodipine Besylate 5 MG DAILY 06/09 1641 AC 06/11 PO 0814 Ceftriaxone Sodium 1,000 MG 1500 06/09 1500 AC 06/10 IV 1706 Heparin Sodium 5,000 UNIT Q8 06/08 2200 AC 06/11 (Porcine) SC 0530 Latanoprost 1 GTT AT BEDTIME 06/08 2100 AC 06/10 OPH 2004 Lisinopril 10 MG DAILY 06/09 0900 AC 06/11 PO 0813 Patient Medication 1 ED ONE ONE 06/10 1945 [place] Teaching ED 06/10 1946 Promethazine HCl 12.5 MG ONCE ONE 06/10 1430 DC 06/10 IV 06/10 1431 1434 Promethazine HCl 25 MG ONCE ONE 06/10 1415 CAN PO 06/10 1416 Risperidone 0.25 MG QPM 06/10 2100 CAN PO Risperidone 0.25 MG QPM PRN 06/10 2100 DC PO Risperidone 0.25 MG QPM PRN 06/10 1030 DC PO 06/10 2059 Risperidone 0.25 MG QPM PRN 06/09 2111 DC PO 06/10 2059 Sertraline HCl 25 MG 0800 06/09 0800 AC 06/11 PO 0814 Timolol Maleate 1 GTT BID 06/08 2100 AC 06/11 OPH 0814 Trimethobenzamide HCl 200 MG ONCE ONE 06/10 1400 CAN IM 06/10 1401 Assessment/Plan Assessment: Ms. Chen is a 83yo F w/ PMH of AZD, HTN, Galucoma, OA, presented to ER BIBA from [facility] s/P fall, and per EMS, patient was found laying on the floor in an apartment, was unwitnessed fall #UTIresolved be discharged on Keflex. Blood cultures no growth to date #Confusion receiving Phenergan IV for nausea. Noncon head CT was negative, EKG was A. fib, unchanged from previous rate controlled. Patient is significantly improved this morning, most likely a reaction to Phenergan. not good. Could be contributory to confusion. DVT prophylaxis IV access Tolerating regular diet DispositionTO STR, TODAY DNR/DNI Problem List: 1. UTI (urinary tract infection) Pain Ratin Pain Location: na Pain Goal: Remain pain free Pain Plan: per pathway Tomorrow's Labs & Rationales: Peter Hanson 06/11/18 1142: Attending MD Review Statement Attending Statement Attending MD Statement: examined this patient, discuss w/resident/PA/CABLE TESTERS HELPER, agreed w/resident/PA/CABLE TESTERS HELPER, discussed with family, reviewed EMR data (avail), discussed with nursing, discussed with case mgmt, reviewed images, amended to note Attending Assessment/Plan: Patient with clinical improvement. Her Vitals stable this morning. She can be discharged in stable condition. Follow up with PCP in 1 week of discharge.
--- NOTE | 2018-06-11 09:32 | Patient Discharge Instructions ---
Discharge Instructions General Discharge Information Special Instructions: - Please follow up with your primary care physician within 1-2 weeks of discharge. Inform your primary care physician of this admission to [facility]. - Continue your current medications per discharge instructions. - Please watch for these problems: Fever, Chills, Nausea, Vomiting, Shortness of Breath, Productive Cough, Chest Pain/Discomfort, Abdominal Pain, Active Bleeding or Bloody urine/stool. Diet Continue normal diet: Yes Acute Coronary Syndrome Inclusion Criteria At DC or during hospital stay patient has or had the following: ACS DIAGNOSIS No Discharge Core Measures Meds if any: Prescribed or Continued at Discharge Meds if any: NOT Prescribed or Continued at Discharge Congestive Heart Failure Inclusion Criteria At DC or during hospital stay patient has or had the following: CHF DIAGNOSIS No Discharge Core Measures Meds if any: Prescribed or Continued at Discharge Meds if any: NOT Prescribed or Continued at Discharge Cerebrovascular accident Inclusion Criteria At DC or during hospital stay patient has or had the following: CVA/TIA Diagnosis No Discharge Core Measures Meds if any: Prescribed or Continued at Discharge Meds if any: NOT Prescribed or Continued at Discharge Venous thromboembolism Inclusion Criteria VTE Diagnosis No VTE Type NONE VTE Confirmed by (Test) NONE Discharge Core Measures - Per Current guidelines, there needs to be overlap - treatment for the first 5 days of Warfarin therapy. - If discharged on Warfarin prior to 5 days of - overlap therapy, the patient will need to be - assessed for post discharge needs including - *Post discharge parental anticoagulation - *Warfarin and/or parental anticoagulation education - *Follow up date to check INR post discharge At least 5 days overlap therapy as Inpatient No Meds if any: Prescribed or Continued at Discharge Note: Overlap Therapy is Warfarin and Anticoagulant Meds if any: NOT Prescribed or Continued at Discharge
--- NOTE | 2018-06-11 09:32 | Discharge Summary ---
Visit Information Visit Dates Admission Date: 06/08/18 Discharge Date: 06/11/2018 Hospital Course Course Attending Physician: Peter Giron MD Primary Care Physician: Tiffanie Sosa MD [facility] Course: Ms. Chen is a 83yo F w/ PMH of AZD, HTN, Galucoma, OA, presented to ER [facility]IBA from [facility] living a/P fall, and per EMS, patient was found laying on the floor in an apartment, was unwitnessed fall. Patient had baseline confusion but denied any injuries or no obvious signs of injury to her neck or back, patient remained alert and awake but only oriented to self, not to place/time/setting/ president. Patient was recently seen in ER on 06/04 with AMS however was sent home monitoring without admission. On admission, Vitals: stable afebrile however spiked Tmax 100.4 during GM admission, BP 164/80 , RA satting 100% -CBC: Leukocytosis 15.5, H/H 11.8/34.7 -BMP: unremarkbale -PT/INR: none -UA/Microbiology: Positive for LE/NItrites/WBC/Bacteria. -CXR: 1. Tortuous and ectatic aorta and borderline enlarged cardiac silhouette. 2. Lung findings suggestive of obstructive lung disease. No focal superimposed acute process -Head CT: 1. No acute intracranial pathology. There is no significant interim change. 2. There is marked patchy low attenuation change in the paravertebral white matter spaces, commonly associated with chronic microangiopathy. 3. A previously described right thalamic lacunar infarction is faintly visualized. Please see recommendation on the report for the CT brain dated 06/04/2018. -EKG: NSR w/o significant ST-T abnormalities. -Last Echo: none in [facility] -Interventions in ER: IVF x 1, ceftriaxone x 1 Problem list/Assessment/Hospital Course: #UTI w/ Leukocytosis #Dehydration, resolved w/ fluid #AMS w/ possible Toxic encephalopathy, improved #Unwitnessed Fall #PMH of AZD, HTN, Galucoma, OA On admission, patient was started on IVF gental hydration, encouraced food intake, and started IV ceftriaxone 1gm q24 to cover common UTI bacteria, as we have no previous microbiology on file. Urine culture showed cronin-sensitive E.coli. Patient received a total dose of 3 days ABx for uncomplicated UTI, and will be discharged Off Abx. Patient's mental status improved over the hospital course remarkably and will need STR for further PT treatment before home. Home meds was continued over the hospital course except trazdone due to AMS. Psych consult recommended to continue setraline and start risepridone 0.25mg at bedtime as needed for mental health. Of note, patient had decreased mental status while being given phenergan in hospital for Nausea. Would avoid phenergan in future. DVT prophylaxis Pharm PPX + ALPS Regular Diet IV Access: Peripheral IV Full Code Allergies: Coded Allergies: No Known Allergies (10/12/17) Pertinent Lab Results: SERVICE DATE: 06/08/18 EXAM TYPE: RAD - XRY-PORTABLE CHEST XRAY IMPRESSION: 1. Tortuous and ectatic aorta and borderline enlarged cardiac silhouette. 2. Lung findings suggestive of obstructive lung disease. No focal superimposed acute process. SERVICE DATE: 06/10/18 EXAM TYPE: CAT - CT HEAD WO IV CONTRAST IMPRESSION: 1. Examination degraded by patient motion. 2. Visualized portions do not demonstrate acute intracranial pathology. 3. Severe small vessel ischemic disease. Disposition Summary Disposition Principal Diagnosis: #UTI w/ Leukocytosis #Dehydration, resolved w/ fluid #AMS w/ possible Toxic encephalopathy, improved #Unwitnessed Fall #PMH of AZD, HTN, Galucoma, OA Additional Diagnosis: As above Discharge Disposition: SNF Discharge Instructions General Discharge Information Code Status: Do Not Resucitate/Intubat Patient's Diet: as tolerated Patient's Activity: as tolerated Follow-Up Instructions/Appts: - Please follow up with your primary care physician within 1-2 weeks of discharge. Inform your primary care physician of this admission to [facility]. - Continue your current medications per discharge instructions. - Please watch for these problems: Fever, Chills, Nausea, Vomiting, Shortness of Breath, Productive Cough, Chest Pain/Discomfort, Abdominal Pain, Active Bleeding or Bloody urine/stool. Medications at Discharge Discharge Medications: Stop taking the following medications: Trazodone HCl (Trazodone HCl) 50 MG TABLET ORAL as needed for UNKNOWN Continue taking these medications: Travoprost (Travatan Z) 0.004 % DROPS 1 Drop In the eye DAILY Bimatoprost (Lumigan) 0.01 % DROPS 1 Drop In the eye Every night Lisinopril (Lisinopril) 10 MG TABLET 1 Tablet ORAL DAILY Sertraline HCl (Sertraline HCl) 25 MG TABLET 1 Tablet ORAL DAILY @8 AM Timolol (Betimol) 0.25 % DROPS 1 DROP In the eye TWICE DAILY Start taking the following new medications: Risperidone (Risperidone) 0.25 MG TABLET 1 Tablet ORAL TAKE AT BEDTIME as needed for insomnia/delirium Qty = 10 No Refills Copies To: Tiffanie Sosa MD
[2018-06-11] MEDS ORDERED: RISPERIDONE0.25 M1 PO (09:38)
[2018-06-11 11:20] VITALS: BP 155/96
== END 2018-06-11 12:47 | DRG 689 ==
LOC: ERH 12:21 → ERHI 14:42 → 2NB 14:42 → CANRESERV 15:33 → ENRESERV 15:33 → ENTRNSPT 16:04 → EDTRNSPTSTS 16:14 → 2NB 16:21 → CMPTRNSPT 16:29 → 2NB 06-10 07:47 → ENPENDDIS 06-11 10:13 → 2NB 06-11 12:47
PROVIDERS: Internal Medicine; Physical Medicine & Rehabilitation
DX: N39.0 Urinary tract infection, site not specified (principal); G92 Toxic encephalopathy; G30.9 Alzheimer's disease, unspecified; F02.80 Dementia in other diseases classified elsewhere, unspecified severity, without behavioral disturbance, psychotic disturbance, mood disturbance, and anxiety; I10 Essential (primary) hypertension; W18.30XA Fall on same level, unspecified, initial encounter; Y92.039 Unspecified place in apartment as the place of occurrence of the external cause; H40.9 Unspecified glaucoma; E86.0 Dehydration; B96.20 Unspecified Escherichia coli [E. coli] as the cause of diseases classified elsewhere; Z66 Do not resuscitate
CPT/HCPCS: 2NBP; 36592; 71045; 80307; 81001; 82436; 87040; 87086; 93005; 93010; 94799; 97116-GO; 97161-GP; 97530-GO; J0131; J0696; J1644; J2405; J2550; J3250